=== PATIENT | male | born 1940 | race Caucasian/White ===

== ENCOUNTER → 2016-06-11 | Outpatient (CLI) | payer OTHER ==
[~2016-06-11] MED LIST: ALBUAER2 INH; ASPI81TA28 PO; CLOP1TAB15 PO; EZET10TA47 PO; HYDR5LIQ PO; LEVO1TAB35 PO; LPT/40 PO; METO50TA17 PO; MISCTAB30 PO; NF406 PO; NTRGSL/4 UT; PANT1TAB48 PO; RANI300T2 PO
[2016-06-11 13:43] LABS: ALT/SGPT 46 U/L (12-78); AST/SGOT 22 U/L (15-37); BLOOD UREA NITROGEN 18 mg/dl (7-18); BUN/CREATININE RATIO 17.8 (10-20); CALCIUM 8.5 mg/dl (8.5-10.1); CARBON DIOXIDE 23 mmol/L (21-32); CHLORIDE 108 mmol/L (98-107); GLUCOSE 108 mg/dl (70-99); POTASSIUM 4.2 mmol/L (3.5-5.1); SODIUM 142 mmol/L (136-145)
[2016-06-11 13:47] LABS: ALB/GLOB RATIO 1.2 (0.9-2); ALKALINE PHOSPHATASE 106 U/L (45-117); CHOLESTEROL 134 mg/dl (0-200); CHOLESTEROL/HDL RATIO 2.6; HDL CHOLESTEROL 52 mg/dl; LDL CHOLESTEROL CALCULATED 45 mg/dl; TRIGLYCERIDES 184 mg/dl (0-150); VERY LOW DENSITY LIPOPROT CALC 37 mg/dl
== END | disposition home or self-care (01) ==
LOC: C.LABPVFM 07:54
PROVIDERS: ATTEND Nurse Practitioner
DX: I10 Essential (primary) hypertension (principal); E78.5 Hyperlipidemia, unspecified

== ENCOUNTER → 2016-06-14 | Outpatient (CLI) | payer OTHER ==
--- NOTE | 2016-06-14 09:25 | DIAGNOSTIC IMAGING REPORT ---
CHEST 2 VIEWS ROUTINE CLINICAL HISTORY: RIGHT SIDED CHEST PAIN pain COMPARISON STUDY: 07/26/2015 FINDINGS: The bones soft tissues and hemidiaphragms are normal. The cardiomediastinal silhouette is normal. The lungs are clear. The pulmonary vasculature is normal. IMPRESSION: Negative chest. Electronically signed by: Escobar Mace M.D. 06/14/2016 9:24 AM Dictated Date/Time: 06/14/2016 9:22 AM
== END | disposition home or self-care (01) ==
LOC: C.RADPV 09:09
PROVIDERS: ATTEND Nurse Practitioner
DX: R07.9 Chest pain, unspecified (principal)

== ENCOUNTER → 2016-06-18 | Outpatient (CLI) | payer OTHER ==
--- NOTE | 2016-06-18 09:27 | DIAGNOSTIC IMAGING REPORT ---
ULTRASOUND RIGHT UPPER QUADRANT ABDOMEN CLINICAL HISTORY: Right upper quadrant abdominal pain. COMPARISON STUDY: Abdominal CT dated 01/07/2014. TECHNIQUE: Real-time, grayscale, and color flow sonography of the right upper quadrant of the abdomen was performed. Images are reviewed in the transverse and longitudinal planes. FINDINGS: Liver: The liver is normal in size and echotexture. There is no intrahepatic biliary ductal dilatation. The main portal vein is patent. Gallbladder: A 2 mm gallbladder polyp is incidentally noted. The gallbladder is otherwise normal in appearance. No gallstones are identified. There is no gallbladder wall thickening or pericholecystic fluid. A sonographic Bond's sign is reportedly absent. The common bile duct measures up to 0.4 cm in diameter. Pancreas: Visualized portions of the pancreatic head and body are normal in appearance. Right kidney: Survey images of the right kidney demonstrate normal size and echotexture. There is no hydronephrosis. A 6 mm shadowing calculus is present in the right lower pole. Ascites: None. IMPRESSION: 1. No acute sonographic abnormality is identified in the right upper quadrant. No gallstones are seen. 2. Nonobstructing right renal calculus. Electronically signed by: Hipolito Bansal M.D. 06/18/2016 9:26 AM Dictated Date/Time: 06/18/2016 9:24 AM
== END | disposition home or self-care (01) ==
LOC: C.ULTR 08:52
PROVIDERS: ATTEND Nurse Practitioner
DX: R07.9 Chest pain, unspecified (principal); N20.0 Calculus of kidney

== ENCOUNTER → 2016-12-08 | Outpatient (CLI) | payer OTHER ==
[2016-12-08 13:06] LABS: ESTIMATED AVERAGE GLUCOSE 128 mg/dl; HA1C FLAG Normal (Normal)
[2016-12-08 13:07] LABS: BLOOD UREA NITROGEN 23 mg/dl (7-18); BUN/CREATININE RATIO 25.8 (10-20); CALCIUM 8.5 mg/dl (8.5-10.1); CARBON DIOXIDE 26 mmol/L (21-32); CHLORIDE 110 mmol/L (98-107); CREATININE 0.88 mg/dl (0.60-1.40); GLUCOSE 100 mg/dl (70-99); SODIUM 141 mmol/L (136-145)
== END | disposition home or self-care (01) ==
LOC: C.LABPVFM 08:04
PROVIDERS: ATTEND Nurse Practitioner
DX: I10 Essential (primary) hypertension (principal); R73.01 Impaired fasting glucose

== ENCOUNTER → 2017-02-20 | Outpatient (CLI) | payer OTHER ==
[2017-02-20 13:11] LABS: CHOLESTEROL/HDL RATIO 2.7
== END | disposition home or self-care (01) ==
LOC: C.LABPVFM 08:08
PROVIDERS: ATTEND Nurse Practitioner
DX: E78.5 Hyperlipidemia, unspecified (principal)

== ENCOUNTER → 2017-06-14 | Outpatient (CLI) | payer OTHER ==
[~2017-06-14] MED LIST changes: -NF406 PO; +OSEL75CA23 PO; +PANT1TAB3 PO; -PANT1TAB48 PO
[2017-06-14 13:05] LABS: HEMOGLOBIN A1C 5.8 % (4.5-5.6)
[2017-06-14 13:24] LABS: ALBUMIN 3.7 gm/dl (3.4-5.0); ALT/SGPT 37 U/L (12-78); AST/SGOT 19 U/L (15-37); BLOOD UREA NITROGEN 22 mg/dl (7-18); CARBON DIOXIDE 23 mmol/L (21-32); CREATININE 0.99 mg/dl (0.60-1.40); GLUCOSE 104 mg/dl (70-99); POTASSIUM 3.9 mmol/L (3.5-5.1); SODIUM 138 mmol/L (136-145)
[2017-06-14 13:26] LABS: ALKALINE PHOSPHATASE 106 U/L (45-117); TOTAL PROTEIN 7.1 gm/dl (6.4-8.2)
== END | disposition home or self-care (01) ==
LOC: C.LABPVFM 08:24
PROVIDERS: ATTEND Nurse Practitioner
DX: R73.01 Impaired fasting glucose (principal); I10 Essential (primary) hypertension

== ENCOUNTER → 2017-12-05 | Outpatient (CLI) | payer OTHER ==
[2017-12-05 12:49] LABS: BASO % 0.4 %; BASO ABS # 0.02 K/uL (0-0.2); EOS % 2.2 %; EOS ABS # 0.12 K/uL (0-0.5); HEMATOCRIT 36.2 % (42-52); HEMOGLOBIN 12.2 g/dL (14.0-18.0); IG# 0.01 K/uL (0.00-0.02); LYMPH % 21.4 %; LYMPH ABS # 1.16 K/uL (1.2-3.4); MEAN CELL VOLUME 94.5 fL (80-100); MEAN CORPUSCULAR HEMOGLOBIN 31.9 pg (25-34); MEAN CORPUSCULAR HGB CONC 33.7 g/dl (32-36); MEAN PLATELET VOLUME 8.6 fL (7.4-10.4); MONO ABS # 0.54 K/uL (0.11-0.59); NEUT % 65.8 %; NEUT ABS # 3.57 K/uL (1.4-6.5); PLATELET COUNT 298 K/uL (130-400); RED CELL DISTRIBUTION WIDTH CV 13.6 % (11.5-14.5); RED CELL DISTRIBUTION WIDTH SD 46.8 fL (36.4-46.3); WHITE BLOOD COUNT 5.42 K/uL (4.8-10.8)
[2017-12-05 13:10] LABS: BLOOD UREA NITROGEN 24 mg/dl (7-18); CALCIUM 8.9 mg/dl (8.5-10.1); CARBON DIOXIDE 23 mmol/L (21-32); CREATININE 0.99 mg/dl (0.60-1.40); GLUCOSE 99 mg/dl (70-99); POTASSIUM 4.3 mmol/L (3.5-5.1); SODIUM 136 mmol/L (136-145)
== END | disposition home or self-care (01) ==
LOC: C.LABPVFM 10:44
PROVIDERS: ATTEND Nurse Practitioner
DX: I10 Essential (primary) hypertension (principal); R73.01 Impaired fasting glucose

== ENCOUNTER 2023-12-16 05:07 | Observation (INO) ==
--- NOTE | 2023-11-19 10:45 | PAT Medication Instructions ---
Medication Instructions Date of Service November 19, 2023 Home Medications Medication Instructions Recorded rosuvastatin 40 mg tablet (Crestor) 40 mg PO DAILY #30 tabs 08/14/19 losartan 25 mg tablet 25 mg PO DAILY #90 tabs 11/18/23 omeprazole 20 mg capsule,delayed 20 mg PO BID #180 caps 11/18/23 release Medication List: aspirin 81 mg tablet,delayed release (Adult Low Dose Aspirin) 81 mg PO QAM clopidogrel 75 mg tablet 75 mg PO QAM nitroglycerin 0.4 mg sublingual tablet (Nitrostat) 0.4 mg sublingual Q5M PRN CHEST PAIN rosuvastatin 40 mg tablet (Crestor) 40 mg PO DAILY furosemide 40 mg tablet 40 mg PO BID spironolactone 25 mg tablet 25 mg PO QAM isosorbide mononitrate 30 mg tablet,extended release 24 hr 30 mg PO QAM metoprolol tartrate 75 mg tablet 50 mg PO BID cholecalciferol (vitamin D3) 50 mcg (2,000 unit) tablet (Vitamin D3) 50 mcg PO DAILY losartan 25 mg tablet 25 mg PO DAILY omeprazole 20 mg capsule,delayed release 20 mg PO BID MEDICATION INSTRUCTIONS: Continue as directed nitroglycerin 0.4 mg sublingual tablet (Nitrostat) 0.4 mg sublingual Q5M PRN CHEST PAIN ASK your prescriber and surgeon aspirin 81 mg tablet,delayed release (Adult Low Dose Aspirin) 81 mg PO QAM clopidogrel 75 mg tablet 75 mg PO QAM (for spinal anesthesia: will need to hold Plavix/clopidogrel for at least 7 days prior to surgery) DO NOT take the morning of surgery furosemide 40 mg tablet 40 mg PO BID spironolactone 25 mg tablet 25 mg PO QAM cholecalciferol (vitamin D3) 50 mcg (2,000 unit) tablet (Vitamin D3) 50 mcg PO DAILY losartan 25 mg tablet 25 mg PO DAILY Take morning of surgery With a small sip of water, OTHERWISE NOTHING TO EAT OR DRINK AFTER MIDNIGHT: metoprolol tartrate 75 mg tablet 50 mg PO BID omeprazole 20 mg capsule,delayed release 20 mg PO BID isosorbide mononitrate 30 mg tablet,extended release 24 hr 30 mg PO QAM rosuvastatin 40 mg tablet (Crestor) 40 mg PO DAILY Take evening before surgery metoprolol tartrate 75 mg tablet 50 mg PO BID omeprazole 20 mg capsule,delayed release 20 mg PO BID furosemide 40 mg tablet 40 mg PO BID Other Notes If you have any questions please call us at [phone] or [phone] or [phone] or [phone]
--- NOTE | 2023-11-27 08:47 | Anesthesiology Consultation ---
Date of Service November 27, 2023 Assessment & Plan (1) Encounter for pre-operative examination: - Check BSG AM DOS - Infectious disease screening: Per assessment on 11/27/23: No known recent infectious disease contacts or current infectious disease symptoms. - Outpatient joint assessment: Pt currently scheduled for inpatient pathway. If surgeon requests review for outpatient joint pathway, patient is not recommended candidate for outpatient joint program from anesthesia standpoint based on available information. - Plavix instructions: Patient made aware that for neuraxial anesthesia, Plavix needs to be held 7 days prior to surgery- okay per cardiology. - Cardiology visit (11/25/23): "..underwent Lexiscan nuclear stress testing revealing lateral ischemia. On July 18, 2023 he underwent cardiac catheterization by Dr. Tiwari at [facility] revealing progression of multivessel coronary artery disease. Findings included moderate disease of the left main extending into the ostium of the LAD, critical complex ostial circumflex and ramus branch disease, 99% stenosis of a small ramus, and severe stenosis of the RPDA. His left system was not felt to be great for PCI. LV function preserved. Following consideration of options, patient elected to proceed with coronary artery bypass grafting, undergoing redo sternotomy, CABG x 3 on August 21, 2023.. Postoperative course complicated by anemia (discharge Hgb 8.1 g/dL), CO2 retention, urinary retention and hematuria, vagal episodes. No postoperative atrial fibrillation observed. Imdur 60 mg/day discontinued on discharge from [facility] [place]. Tamsulosin 0.4 mg daily x 30 day and oxycodone prescribed on discharge... Patient returns today feeling OK. Notes being evaluated by CT Surgery on 09/26/2023, advised at that time to discontinue furosemide (40 mg BID). Over the last few weeks he has notice some bilateral lower extremity edema. He states that he has been feeling great. Notes working without cardiopulmonary limitation (limited by hip pain with possible surgical intervention in December). No activity related chest pain or unusual shortness of breath. No palpitations. No orthopnea or PND. No abrupt weight change. No lightheadedness, dizziness, near syncope, or syncope. No fevers or chills. No epistaxis, hemoptysis, melena, hematochezia, or hematuria.. Verify current medications, resuming furosemide at 40 mg ONCE a day for now.. No overt cardiac contraindications to elective hip replacement once blood pressure and fluid status are acceptable. Metoprolol and aspirin should be continued without interruption. OK to hold clopidogrel up to 7 days prior to surgery. Recommend holding losartan, furosemide, and spironolactone the morning of surgery then resuming postoperatively as hemodynamics permit." - Cardiology mentioned rechecking BMP week of 12/08 (around time of DOS) due to addition/resumption of furosemide. Patient states he is planning to have done prior but if not, will update BMP DOS. Awaiting updated BMP ([place] [facility], ~12/08). Patient otherwise acceptable risk for surgery. Chart Review Chart Review: Patient seen in Pre Admission Testing Teaching & Discussion Pre-Anesthesia Teaching/Discussion Notes: Instructed NPO after midnight before surgery,except medications with 15 cc of water. Medication instructions provided according to the PAT guidelines. History Surgery Operation Date: 12/16/23 09:00 Proposed Procedures p Right Anterior Total Hip Arthroplasty - David Grossman, Height/Weight Height: 5 ft 8 in Weight: 91.7 kg Allergies Allergy/AdvReac Type Severity Reaction Status Date / Time codeine Allergy Unknown Rash Verified 11/15/23 11:06 erythromycin base Allergy Unknown Rash Verified 11/15/23 11:06 Penicillins Allergy Unknown Hives Verified 11/15/23 11:06 Tetracyclines Allergy Unknown Rash Verified 11/15/23 11:06 Medications Home Medications Medication Instructions Recorded Confirmed Last Taken aspirin 81 mg tablet,delayed 81 mg PO QAM 11/12/18 11/15/23 Unknown release (Adult Low Dose Aspirin) clopidogrel 75 mg tablet 75 mg PO QAM 11/12/18 11/15/23 Unknown nitroglycerin 0.4 mg sublingual 0.4 mg sublingual Q5M PRN CHEST 11/12/18 11/15/23 Unknown tablet (Nitrostat) PAIN rosuvastatin 40 mg tablet (Crestor) 40 mg PO DAILY #30 tabs 08/14/19 11/15/23 Unknown furosemide 40 mg tablet 40 mg PO BID 08/21/21 11/15/23 Unknown spironolactone 25 mg tablet 25 mg PO QAM 08/21/21 11/15/23 Unknown isosorbide mononitrate 30 mg 30 mg PO QAM 08/21/22 11/15/23 Unknown tablet,extended release 24 hr metoprolol tartrate 75 mg tablet 50 mg PO BID 05/23/23 11/15/23 Unknown cholecalciferol (vitamin D3) 50 50 mcg PO DAILY 11/15/23 11/15/23 Unknown mcg (2,000 unit) tablet (Vitamin D3) losartan 25 mg tablet 25 mg PO DAILY #90 tabs 11/18/23 Unknown omeprazole 20 mg capsule,delayed 20 mg PO BID #180 caps 11/18/23 Unknown release Past Medical History Medical History CAD (coronary artery disease) s/p CABG x3 (08/2023) Carotid artery stenosis s/p Left Carotid Thromboendarterectomy (2010) Carotid duplex 07/2023: FUNMI 50-69% stenosis (stable), LICA < 50% stenosis Chronic anemia Chronic lumbosacral pain Diverticulosis of colon GERD (gastroesophageal reflux disease) Gout History of aortic stenosis s/p AVR (2017), Echo 09/2022 Follows with [facility] cardio History of prostate cancer s/p treatment with [facility] urology 5+ years ago HTN (hypertension) Hyperlipidemia Mitral regurgitation Osteoarthritis Pre-diabetes Seasonal allergies Exercise / Class Metabolic Activity III < 4 Walking/Shop/Light housework Past Family History Family History Other Colorectal cancer Prostate cancer Denies family history of Ovarian cancer Myocardial infarction Breast cancer Past Surgical History Surgical History History of carpal tunnel release of both wrists History of coronary artery bypass graft x 3 (08/2023) Follows [facility] cardio History of surgical procedure Carotid Thromboendarterectomy, Left Hx of aortic valve replacement 2018 Hx of bilateral cataract extraction Hx of cardiac catheterization Multiple Hx of colonoscopy Hx of knee surgery Hx of shoulder surgery rotator cuff repair; R/L Past Anesthesia History No Hx of Anesthesia Complications and No Family Hx of Anesthesia Complications History of PONV No Hx of PONV and No Hx of Motion Sickness Social History Smoking Status: Never smoker Do You Dip or Chew Tobacco: No Hx Alcohol Use: Yes Alcohol type: hard liquor alcohol intake frequency: holidays/special occasions only Hx Substance Use: No substance use type: does not use Review of Systems Patient denies chest pain, shortness of breath, dyspnea on exertion, fever, chills, cough, wheezing, palpitations. Physical Exam Vital Signs BP 120/71 P 61 TEMP 98.2 SP02 95%RA RESP 18 Physical Full cervical extension range of motion. Full TMJ range of motion. TMD 3 finger breaths Mallampati Score 2 Dentition: upper/lower full dentures Lungs: clear throughout to auscultation Cardiac: regular rate and rhythm, no murmurs noted Spine: normal Carotid arteries: negative bruit Extremities: no LE edema Lab Results Anesthesia Preop Results Results Anesthesia Widget: PT 10.6 Seconds (9.0-12.0) 11/27/23 PTT 25 Seconds (21-31) 11/27/23 INR 1.0 (0.9-1.1) 11/27/23 Blood Type O Positive 11/27/23 Antibody Screen NEGATIVE 11/27/23 Testing Laboratory Results 11/25/23 WBC 4.14 H/H 12.1/35.7 PLATELETS 165 SODIUM 137 POTASSIUM 4.0 CHLORIDE 100 CO2 24 BUN 16 CREATININE 1.0 GLUCOSE 110 MAGNESIUM 2.1 08/01/23 HGBA1C 6.3% Electrocardiogram Date: 09/23/23 SR with frequent PVCs at 80bpm. NS TWA. Prolonged QT interval or tu fusion, consider myocardial disease, electrolyte imbalance or drug effects. Chest X-Ray Date: 11/27/23 FINDINGS: PA and lateral chest radiographs are compared to study dated 05/23/2023. Correlation is made with chest CT dated 10/27/2019. The patient is status post midline sternotomy. The heart is enlarged noting atherosclerotic calcification of the thoracic aorta. The pulmonary vasculature is noncongested. There is mild bibasilar scarring/atelectasis. The lungs and pleural spaces are otherwise clear. There is no pneumothorax. The skeletal structures are osteopenic. The bony thorax appears intact. Degenerative change is noted in the thoracic spine. A 7 mm calculus is seen in the upper pole of the right kidney. Additional smaller calculi are seen on the left. IMPRESSION: Cardiomegaly with no active disease in the chest. Bilateral nephrolithiasis. Echocardiogram Date: 09/19/22 LVEF 65-69%.Moderately increased concentric LV wall thickness. Grade 1 diastolic dysfunction. Bioprosthetic aortic valve present. Aortic valve prosthesis systolic gradients are normal for this type prosthesis. Significant AV prosthesis regurgitation is absent. Mild MR. No evidence of pulmonary hypertension.LV wall motion is normal. Stress Test Date: 06/14/23 Abnormal Lexiscan nuclear stress test demonstrating small basal lateral infarct with moderate wes-infarct ischemia. Ischemia compasses 10% of the total m yocardium per quantitative analysis.Gated SPECT images reveal normal myocardial thickening and wall motion. LVEF 71%. Cardiac Catheterization Date: 07/18/23 Severe multivessel CAD -There is a 50% LMCA stenosis in the distal segment - There is a 95% stenosis in the ostial LCX -There is a 99% stenosis in the proximal Ramus -There is an 85% stenosis in proximal D1 -There is a 90% stenosis in proximal rPDA Otherwise prior stents are patent with mild luminal irregularities diffusely. LVEDP = 19 mmHg S/p R radial artery access *Subsequent CABGx3 performed 08/2023* Other Testing Carotid duplex Date: 07/31/23 The right vertebral artery demonstrates antegrade flow. The left vertebral artery demonstrates antegrade flow. Right carotid artery duplex examination indicates evidence of 50-69% stenosis of the internal carotid artery. Left carotid artery duplex examination indicates evidence of less than 50% stenosis of the internal carotid artery.
--- OUTSIDE RECORDS SUMMARY | 2023-12-16 05:15 | External Medical Summary | Summary of Care ---
Author Name Unknown Organization [facility] Address [address] [facility] [address] Phone [phone] Care Team Providers Care Truck Bracer Name Role Phone Barbara Rod Primary Care Provide r Encounter Details Date Type Department Care Team (Late st Contact Info) Description 12/11/2023 Orders Only Cardiology, [facility] [address] [place] [address] Escobar Dacosta PA-C [address] [place] [id number] Allergies Active Allergy Reactions Criticality Noted Date Comments Erythromycin Base 05/23/2023 Other Reaction(s): Rash Morphine And Codeine 06/02/2008 rash Penicillins Hives 06/02/2008 Tetracycline Base Hives 06/02/2008 Tetracycline Hcl 05/31/2010 documented as of this encounter (statuses as of 12/11/2023) Medications Medication Sig Dispensed Refills Start Date End Date Status nitroglycerin (NITROSTAT) 0.4 MG SUBLIndications:Digital Specialist brionna coronary artery disease,S/P angioplasty with stent 1 Tab Sublingual Every 5 minutes as needed for chest pain 25 Tab 5 09/25/2016 Active Aspirin 81 MG Tablet Take 1 Tablet by mouth in the morning. Active D3 2000 50 MCG (1999) Oral Capsule (Cholecalciferol) Take 1 Capsule by mouth in the morning. Active Rosuvastatin Calcium 40 MG Oral Tablet (Crestor)Indications :Dyslipidemia, goal LDL below 70 TAKE ONE TABLET BY MOUTH EVERY DAY 90 Tablet 3 11/19/2022 4 Active Clopidogrel Bisulfate 75 MG Oral Tablet (pLAVix)Indications: Chronic coronary artery disease,S/P angioplasty with stent TAKE ONE TABLET BY MOUTH EVERYDAY 90 Tablet 3 02/25/2023 4 Active Spironolactone 25 MG Oral Tablet (Aldactone)Indicatio ns:Heart failure, diastolic, with acute decompensation (HCC),Diastolic CHF, acute on chronic (HCC) TAKE ONE TABLET BY MOUTH EVERY DAY 90 Tablet 3 03/21/2023 4 Active Metoprolol Tartrate 50 MG Oral Tablet (Lopressor)Indicatio ns:Chronic coronary artery disease TAKE ONE TABLET BY MOUTH TWICE A DAY 200 Tablet 3 07/30/2023 5 Active Losartan Potassium 25 MG Oral Tablet (Cozaar) take one tablet by mouth daily - stop lisinopril 90 Tablet 3 11/18/2023 Active Omeprazole 20 MG Oral Capsule Delayed Release (PriLOSEC) take one capsule by mouth twice a day 180 Capsule 3 11/18/2023 Active Furosemide 40 MG Oral Tablet (Lasix)Indications:H eart failure, diastolic, with acute decompensation (HCC) Take 1 Tablet by mouth in the morning and 1 Tablet before bedtime. 11/27/2023 Active documented as of this encounter (statuses as of 12/11/2023) Active Problems Problem Noted Date Diagnosed Date S/P CABG x 3 08/26/2023 Penile swelling 08/25/2023 Urinary retention 08/25/2023 Gastroesophageal reflux disease 08/24/2023 Hypertension 08/24/2023 Chronic diastolic (congestive) heart failure 07/2021 S/P AVR (aortic valve replacement) 05/15/2021 Dyslipidemia, goal LDL below 70 05/15/2021 Nonrheumatic aortic valve stenosis 04/23/2016 Atheros[place] ronary artery [place] heart without angina pectoris 10/03/2011 S/P PTCA (percutaneous transluminal coronary ang ioplasty) 10/03/2011 Carotid stenosis, non-symptomatic 04/26/2011 S/P angioplasty with stent 06/02/2010 Overview: BLADIMIR to mLAD 06/02/10-Dr. Amos History of prostate cancer 07/29/2008 documented as of this encounter (statuses as of 12/11/2023) Resolved Problems Problem Noted Date Diagnosed Date Resolved Date Atherosclerosis [place] co ronary artery [place] heart 08/01/2023 11/22/2023 Overview: duplicate Postoperative anemia due to acute blood loss 8 04/16/2023 [employer] [facility] Other*[id number] 06/02/2010 06/19/2016 Overview: Study Titile: Genomic Markers for Patients with Cardiovascular Disease Project #[id number] PI: Santa Amos MD Please call [phone] with study related questions Chronic coronary artery disease 06/02/2010 11/22/2023 Overview: duplicate VERDICT Clinical Trial [id number] 1 05/20/2013 Overview: Dr Lui Melgar PI, enrolled 06/02/10 VERDICT Clinical Trial [id number] 1 04/21/2014 Overview: Renamed per the Centers for Medicare and Medicaid billing requirements to include Clinical Trial.gov number. Dr Lui Melgar PI, enrolled 06/02/10 documented as of this encounter (statuses as of 12/11/2023) Immunizations Name Administration Dates Next Due Season Influenza, Quad, PF, Adjuvanted, 65+ Yrs, IM (FLUAD) 01/26/2020 Seasonal Influenza, Quadrivalent Hd (Fluzone Hd) 01/30/2023,01/17/2022 documented as of this encounter Social History Tobacco Use Types Packs/Day Years Used Date Smoking Tobacco: Former Cigarettes 1 15 0 11/01/1972 - 11/02/1987 Smokeless Tobacco: Never Alcohol Use Standard Drinks/Week Comments Yes 0.8 (1 standard drink = 0.6 oz p ure alcohol) Once or twice monthly PHQ-2 Answer Date Recorded PHQ Adult Total Score 0 08/27/2023 Hunger Vital Sign Answer Date Recorded Within the past 12 months, y ou worried that your food would run out before you got the money to buy more. Never true 08/27/19 24 Within the past 12 months, t he food you bought just didn't last and you didn't have money to get more. Never true 08/27/2023 Childcare Answer Date Recorded Do you feel overwhelmed with taking care of a child, family member or friend? No 08/27/2023 Does your family need help f inding childcare? (Household - for ages 0-17 years) Not on file 08/27/2023 Clothing Answer Date Recorded Have you been unable to get clothing when it was really needed? No 08/27/2023 Is your family able to get c lothes or diapers when needed? (Household - for ages 0-17 years) Not on file 08/27/2023 Personal Safety Answer Date Recorded Do you feel unsafe or have concerns for your saf ety? No 08/27/2023 Do you have concerns for you r family's safety? (Household - for ages 0-17 years) Not on file 08/27/2023 Utilities Answer Date Recorded Do you have trouble paying y our heating, water, or electric bill? No 08/27/2023 Is your family able to pay t he heat, water, or electric bill? (Household - for ages 0-17 years) Not on file 08/27/2023 Does your family have access to good internet? (Household - for ages 0-17 years) Not on file 08/27/2023 Employment Status Answer Date Recorded Are you unemployed or without regular income? No 08/27/2023 Does the household have a re gular source of income? (Household - for ages 0-17 years) Not on file 08/27/2023 Social Connections Answer Date Recorded How often do you feel lonely or isolated from th ose around you? Never 08/27/2023 Financial Resource Strain Answer Date R ecorded Do you have any trouble payi ng for your medications, or do you think you might in the future? No 08/27/2023 Does your family have troubl e paying for medicine? (Household - for ages 0-17 years) Not on file 08/27/2023 Transportation Needs Answer Date Record ed READ ONLY Do you have troubl e getting a ride to medical visits or work? Never True 08/27/2023 Does your family have a hard time getting a ride to doctors visits? (Household - for ages 0-17 years) Not on file 08/27/2023 Has lack of transportation k ept you from medical appointments, meetings, work, or from getting things needed for daily living? Check all that apply. (Adult - for ages 18 years and over) Not on file 08/27/2023 Do you (or your family) have trouble finding or paying for a ride (transportation)? (Household - for ages 0-17 years) Not on file 08/27/2023 Housing Stability Answer Date Recorded Do you currently live in a s helter or have no steady place to sleep at night? No 08/27/2023 READ ONLY Do you think you a re at risk of becoming homeless? No 08/27/2023 Does your family worry about paying for your home or becoming homeless? (Household - for ages 0-17 years) Not on file 0 08/27/2023 Are you homeless or worried that you might be in the future? (Adult - for ages 18 years and over) Not on file Are you (or your family) niki eless or worried that you might be in the future? (Household - for ages 0-17 years) Not on file Food Insecurity Answer Date Recorded Do you need food for this week? No 08/27/2023 Are you able to get enough f ood for your family? (Household - for ages 0-17 years) Not on file 08/27/2023 Does your family need food t his week? (Household - for ages 0-17 years) Not on file 08/27/2023 Do you always have enough fo od for your family? (Household - for ages 0-17 years) Not on file 08/27/2023 Sex and Gender Information Value Date Recorded Sex Assigned at Not on file Gender Identity Not on file Sexual Orientation Not on file Job Start Date Occupation Industry Not on file Not on file Not on file documented as of this encounter Plan of Treatment Upcoming Encounters Date Type Department Care Team (Late st Contact Info) Description 02/25/2024 9:00 AM EDT Office Visit Cardiology, [facility] [address] [place] [address] Escobar Dacosta PA-C [address] [place] [address] 04/01/2024 10:30 AM EST Appointment Vascular Lab [facility] [address] [place] [address] 04/01/2024 11:15 AM EST Office Visit Vascular Surg [facility] [address] [place] [address] Darrell Lux MD [address] [place] [address] Health Maintenance Due Date Last Done Comments Albumin/Creatinine Ratio 1958 DTaP,Tdap,and Td Vaccines (1 - Tdap) 1959 COVID-19 Vaccine ( - 2022- season) 2023 02/19/2022, 04/18/2021, 08/30/2020, Additional history exists Influenza Vaccine (FLU shot) (#1) 2024 01/30/2023, 01/11/2023, 01/20/2022, Additional history exists Depression Screening 08/26/2024 08/27/2023 GFR 11/24/2024 12/10/2023, 11/10, 10/14/2023, Additional history exists Pneumococcal Vaccine: 65+ Years Completed 06/18/2017, 12/08/2015 Zoster Vaccines Completed 07/06/2020, 04/12, 03/02/2013 HPV (Gardasil) Vaccine Aged Out No lo nger eligible based on patient's age to complete this topic Hepatitis B Vaccine Aged Out No longe r eligible based on patient's age to complete this topic MENINGOCOCCAL (MENACTRA/MENVEO) Aged Out No longer eligible based on patient's age to complete this topic documented as of this encounter Medical Devices Implanted Type Area Ict Customer Support Officer Device Identifier Shelf Expiration Date Model / Serial / Lot Patch Trice .8x8 [id number] - [id number] Implanted:Qty: 1 on 04/26/2011 at OR [facility] Tissue - Human Left: Carotid [employer] 12/16/2015 [id number] / / [id number] Description:tt Atriclip 40mm [id number] - [id number] Implanted:Qty: 1 on 11/18/2017 by Mamadou Villar MD at OR [facility] N/A: Aorta ATRICURE 08/11/2020 [id number] / / [id number] Valve Heart Aortic Epic 23mm - [id number] - [id number] Implanted:Qty: 1 on 11/18/2017 by Mamadou Villar MD at OR [facility] N/A: Heart ST KARYN : CARDIOVASCULAR 08/19/2020 [id number] -00 / [id number] / Lens Li61ao 13.00mm 20.50 - [id number] - [id number] Implanted:Qty: 1 on 10/16/2022 by Jeremias Ho MD at OR [facility] Right: Eye BAUSCH [employer] LOMB 06/12/2027 [id number] 50 / [id number] / [id number] Lens Li61ao 13.00mm 21.00 - [id number] - [id number] Implanted:Qty: 1 on 10/30/2022 by Jeremias Ho MD at OR [facility] Left: Eye BAUSCH & LOMB 06/12/2027 [id number] 00 / [id number] / [id number] Suture Steel 6 B&S19 M654g - [id number] Implanted:Qty: 8 on 08/21/2023 by Christoph Schultz MD at OR [facility] N/A: Sternum JNJ : [employer] 03/12/2028 M654G / / [id number] Marker Coronary - [id number] Implanted:Qty: 2 on 08/21/2023 by Christoph Schultz MD at OR [facility] N/A: Aorta [employer] 07/10/2026 [facility] / / [id number] documented as of this encounter Procedures Procedure Name Priority Date/Time Associated Diagnosis Comments CHEMISTRY-OUTSIDE Routine 12/10/2023 documented in this encounter Results * (ABNORMAL) CHEMISTRY-OUTSIDE (12/10/2023) Not all results display below - see scan for full detail OUTSIDE LAB (SEE SCANNED REPORT) Comment:SEE SCAN - BMP CREATININE-OUTSID E LAB 0.92 0.6 - 1.4 MG/DL OUTSIDE LAB (SEE SCANNED REPORT) EGFR-OUTSIDE LAB 76.1 ML/MIN OUT SIDE LAB (SEE SCANNED REPORT) POTASSIUM-OUTSIDE LAB 3.8 3.5 - 5.1 MMOL/L OUTSIDE LAB (SEE SCANNED REPORT) GLUCOSE-OUTSIDE LAB 112(A) 70 - 99 MG/DL OUTSIDE LAB (SEE SCANNED REPORT) HOURS FASTING OUTSID E LAB (SEE SCANNED REPORT) TRIGLYCERIDES-OUT SIDE LAB OUTSIDE LAB (SEE SCANNED REPORT) CHOLESTEROL-OUTSI DE LAB OUTSIDE LAB (SEE SCANNED REPORT) HDL-OUTSIDE LAB OUTS TYRONE LAB (SEE SCANNED REPORT) CHOL/HDL RATIO-OUTSIDE LAB OUTSIDE LA B (SEE SCANNED REPORT) LDL (CALCULATED)-OUTS TYRONE LAB OUTSIDE LAB (SEE SCANNED REPORT) LDL (DIRECT MEASURE)-OUTSIDE LAB OUTSIDE LAB (SEE SCANNED REPORT) HEMOGLOBIN, I5B-CBYRLQL LAB OUTSIDE LAB (SEE SCANNED REPORT) PHOSPHORUS-OUTSID E LAB OUTSIDE LAB (SEE SCANNED REPORT) PTH-OUTSIDE LAB OUTS TYRONE LAB (SEE SCANNED REPORT) MICROALBUMIN RATIO-OUTSIDE LAB OUTSIDE LA B (SEE SCANNED REPORT) PROTEIN, UA-OUTSIDE LAB OUTSIDE LAB (SEE SCANNED REPORT) HGB OUTSIDE LA B (SEE SCANNED REPORT) 12/10/2023 Escobar Dacosta PA-C LABORATORY OUTSIDE LAB (SEE SCANNED REPORT) documented in this encounter Advance Directives * Full Code (Latest Code Status on File) Date Activated Date Inactivated Comments 08/21/2023 2:04 PM 08/26/2023 4:05 PM This order r eflects the patients wishes and were consensually agreed upon. Question Answer Comments Discussion of Advance Directives occurred with: Patient * No Code Date Activated Date Inactivated Comments 10/16/2022 9:33 AM 10/16/2022 9:34 AM This order ref lects the patients wishes and were consensually agreed upon. Question Answer Comments Discussion of Advance Directives occurred with: Patient Does the patient have a Living Will? No Does the patient have Health Care Power of Attor audie? No * Full Code Date Activated Date Inactivated Comments 11/18/2017 1:36 PM 11/23/2017 3:31 PM This order re flects the patients wishes and were consensually agreed upon. * Full Code Date Activated Date Inactivated Comments 10/03/2011 1:26 PM 10/04/2011 4:56 AM This order r eflects the patients wishes and were consensually agreed upon. Question Answer Comments Discussion of Advance Directives occurred with: Not Discussed Does the patient have a Living Will? No Does the patient have Health Care Power of Attor audie? No * Full Code Date Activated Date Inactivated Comments 04/26/2011 10:54 AM 04/27/2011 3:38 PM This orde r reflects the patients wishes and were consensually agreed upon. Question Answer Comments Discussion of Advance Directives occurred with: Patient Does the patient have a Living Will? No Does the patient have Health Care Power of Attor audie? No Care Teams Truck Bracer Relationship Specialty Start Date End Date Barbara Rod CRNP [address] [place] [phone] PCP - General Nurse Practitioner 12/14/15 documented as of this encounter
--- OUTSIDE RECORDS SUMMARY | 2023-12-16 05:15 | External Medical Summary | Summary of Care ---
Author Name Unknown Organization [facility] Address [address] [place] [address] Phone [phone] Care Team Providers Care Construction Electrician Name Role Phone Barbara Rod Primary Care Provide r Reason for Visit * Reason Onset Date Comments Test Results 12/11/2023 Encounter Details Date Type Department Care Team (Late st Contact Info) Description 12/11/2023 Telephone Cardiology, [facility] [address] [place] [address] Escobar Dacosta PA-C [address] [place] [address] Test Results Allergies Active Allergy Reactions Criticality Noted Date Comments Erythromycin Base 05/23/2023 Other Reaction(s): Rash Morphine And Codeine 06/02/2008 rash Penicillins Hives 06/02/2008 Tetracycline Base Hives 06/02/2008 Tetracycline Hcl 05/31/2010 documented as of this encounter (statuses as of 12/11/2023) Medications Medication Sig Dispensed Refills Start Date End Date Status nitroglycerin (NITROSTAT) 0.4 MG SUBLIndications:Senior Military Analyst brionna coronary artery disease,S/P angioplasty with stent 1 Tab Sublingual Every 5 minutes as needed for chest pain 25 Tab 5 09/25/2016 Active Aspirin 81 MG Tablet Take 1 Tablet by mouth in the morning. Active D3 2000 50 MCG (2000 UT) Oral Capsule (Cholecalciferol) Take 1 Capsule by [...] Nonrheumatic aortic valve stenosis 04/23/2016 Atherosclerosis of [place] co ronary artery of [place] heart without angina pectoris 10/03/2011 S/P PTCA (percutaneous transluminal coronary ang ioplasty) 10/03/2011 Carotid stenosis, non-symptomatic 04/26/2011 S/P angioplasty with stent 06/02/2010 Overview: BLADIMIR to mLAD 06/02/10-Dr. Amos History of prostate cancer 07/29/2008 documented as of this encounter (statuses as of 12/11/2023) Resolved Problems Problem Noted Date Diagnosed Date Resolved Date Atherosclerosis of [place] co ronary artery of [place] heart 08/01/2023 11/22/2023 Overview: duplicate Postoperative anemia due to acute blood loss 8 04/16/2023 [employer] [facility] Other*[id number] 06/02/2010 06/19/2016 Overview: Study Titile: Genomic Markers for Patients with Cardiovascular Disease Project #[id number] PI: Santa Amos MD Please call [phone] with study related questions Chronic coronary artery disease 06/02/2010 11/22/2023 Overview: duplicate VERDICT Clinical Trial [id number] 1 05/20/2013 Overview: Dr Lui Melgar PI, enrolled 06/02/10 VERDICT Clinical Trial [id number] 1 04/21/2014 Overview: Renamed per the Centers [...] 08/27/2023 Does the household have a re lar source of income? (Household - for ages [...] on file documented as of this encounter Miscellaneous Notes * Telephone Encounter - Danielle Ramirez CMA - 12/11/2023 3:44 PM EDT Letter mailed. * Telephone Encounter - Danielle Ramirez CMA - 12/11/2023 3:43 PM EDT ----- Message from Escobar Dacosta sent at 12/11/2023 2:51 PM EDT ----- ok documented in this encounter Plan of Treatment Upcoming Encounters Date Type Department Care Team (Late st Contact Info) Description 02/25/2024 9:00 AM EDT Office Visit Cardiology, [facility] [address] [place] [address] Escobar Dacosta PA-C [address] [place] [address] 04/01/2024 10:30 AM EST Appointment Vascular Lab [facility] [address] [place] [address] 04/01/2024 11:15 AM EST Office Visit Vascular Surg [facility] [address] [place] [address] Darrell Lux MD [address] [place] [address] Health Maintenance Due Date Last Done Comments Albumin/Creatinine Ratio 1958 DTaP,Tdap,and Td Vaccines (1 - Tdap) 1958 COVID-19 Vaccine ( season) 2023 02/19/2022, 04/18/2021, 08/30/2020, Additional history exists Influenza Vaccine (FLU shot) (#1) 2024 01/30/2023, 01/11/2023, 01/20/2022, Additional history exists Depression Screening 08/26/2024 08/27/2023 GFR 12/09/2024 12/10/2023, 11/10, 10/14/2023, Additional history exists Pneumococcal [...] this encounter Medical Devices Implanted Type Area Fibrous Plasterer Device Identifier Shelf Expiration Date Model / Serial / Lot Patch Александрgubrigida .8x8 [id number] - [id number] Implanted:Qty: 1 on 04/26/2011 at [place] [facility] Tissue - Human Left: Carotid [employer] 12/16/2015 VG-[id number] / / [id number] Description:tt Atriclip 40mm [id number] - [id number] Implanted:Qty: 1 on 11/18/2017 by Mamadou Villar MD at [place] [facility] N/A: Aorta ATRICURE 08/11/2020 [id number] / / [id number] Valve Heart Aortic Epic 23mm - [id number] - [id number] Implanted:Qty: 1 on 11/18/2017 by Mamadou Villar MD at [place] [facility] N/A: Heart ST KARYN : CARDIOVASCULAR 08/19/2020 [id number] -00 / [id number] / Lens Li61ao 13.00mm 20.50 - [id number] - [id number] Implanted:Qty: 1 on 10/16/2022 by Jeremias Ho MD at OR [facility] Right: Eye BAUSCH & LOMB 06/12/2027 [id number] 50 / [id number] / [id number] Lens Li61ao 13.00mm 21.00 - [id number] - [id number] Implanted:Qty: 1 on 10/30/2022 by Jeremias Ho MD at OR [facility] Left: Eye BAUSCH & LOMB 06/12/2027 [id number] 00 / [id number] / [id number] Suture Steel 6 B&S19 M654g - [id number] Implanted:Qty: 8 on 08/21/2023 by Christoph Schultz MD at [place] [facility] N/A: Sternum JNJ : [employer] 03/12/2028 M654G / / [id number] Marker Coronary - [id number] Implanted:Qty: 2 on 08/21/2023 by Christoph Schultz MD at [place] [facility] N/A: Aorta [employer] 07/10/2026 [facility] / / [id number] documented as of this encounter Advance Directives * Full Code [...] Power of Attor audie? No Care Teams Construction Electrician Relationship Specialty Start Date End Date Barbara Rod CRNP [address] [place] [address] [address] [place] [address] PCP - General Nurse Practitioner 12/14/15 documented as of this encounter
[2023-12-16] MEDS: LR 15ML/HR IV SCH (05:56)
[2023-12-16] MEDS: LR 60ML/HR IV SCH (05:56)
[2023-12-16] MEDS: FAMOTIDINE 20 MG TAB PO SCH (05:57)
[2023-12-16] MEDS: ACETAMINOPHEN 500 MG TAB PO SCH ×2 (05:57→13:57)
[2023-12-16] MEDS: dexAMETHasone**PF** 10 MG/ML VIAL IV SCH (05:58)
[2023-12-16] MEDS: GABAPENTIN 300 MG CAP PO SCH (05:58)
[2023-12-16] MEDS ORDERED: ROPIVACAINE 0.5% 5 MG/ML 30 ML VIAL ONE (06:21)
--- NOTE | 2023-12-16 06:36 | History & Physical Bridge Note ---
Date of Service December 16, 2023 History & Physical Bridge Note I have examined the patient, reviewed the History & Physical and in the interval since the performance of the History & Physical I have noted the following changes of clinical significance: no changes noted
[2023-12-16] MEDS ORDERED: fentaNYL citrate PF 100 MCG/2 ML VIAL ONE (06:37)
[2023-12-16] MEDS ORDERED: MIDAZOLAM HCL 1 MG/ML 2ML VIAL ONE (06:37)
[2023-12-16] MEDS: TRANEXAMIC ACID 1,000 MG **IV Pre-op IV SCH (06:40)
[2023-12-16] MEDS ORDERED: HYDROmorphone INJ 1 MG/ML SYRINGE IV PRN (06:40)
[2023-12-16] MEDS ORDERED: ONDANSETRON INJ 2 MG/ML 2 ML VIAL IV PRN ×2 (06:40→09:34)
[2023-12-16] MEDS ORDERED: KETOROLAC 30 MG/ML VIAL IV PRN (06:40)
[2023-12-16] MEDS ORDERED: ATROPINE SULFATE 0.1 MG/ML 10ML SYR IV PRN (06:40)
[2023-12-16] MEDS ORDERED: ePHEDrine sulfate 50 MG/ML AMP IV PRN (06:40)
[2023-12-16] MEDS: ceFAZolin 2000MG 2,000 MG/15 ML SYR IV SCH ×2 (06:55→13:57)
[2023-12-16] MEDS ORDERED: PROPOFOL IV EMULSION 10 MG/ML 20 ML VIAL IV ONE (07:08)
[2023-12-16] MEDS ORDERED: ePHEDrine sulfate 50 MG/ML AMP ONE (07:13)
[2023-12-16] MEDS: ORTHO JOINT ANESTHETIC ONE (07:29)
[2023-12-16] MEDS: ROPIV 0.5% 246mg, Ketorolac 30mg, EPINEPHrine 0.5mg in NSS INFIL SCH (07:29)
--- NOTE | 2023-12-16 08:02 | Operative Report ---
PG Post Operative Report Pre & Post Diagnosis Operation Date: 12/16/23 07:00 Pre-Op Diagnosis: Right Hip Degenerative Joint Disease Post-Op Diagnosis: Right Hip Degenerative Joint Disease I identified the patient and participated in the time-out.: Yes Procedure Operation Date: 12/16/23 07:00 Actual Procedures p Right Anterior Total Hip Arthroplasty, Uncemented(Right) - David Grossman DO Surgeon David Grossman DO Filer Finish David Almonte PA-C Estimated Blood Loss 200 Findings Consistent with Post-Op Diagnosis Specimens Right femoral head Description of Procedure Implants used I used a ZimmerBiomet total hip arthroplasty system with a size 5 standard offset Avenir Complete stem, a 52 mm G7 cup with a 25mm screw, an E1 polyethylene liner, a 36 mm ceramic head with a 0 neck. Ayden arrived at the hospital for the above procedure. He was seen in the preoperative holding area and the operative extremity was identified and signed. He was given a spinal anesthetic, a preoperative antibiotic, and TXA. He was then taken back to the operating room and laid on the table in the supine position. He was given basic sedation. The operative leg was secured to a Puristst leg positioner. The hip was then prepped and draped in sterile fashion. A timeout was done and the patient and the operative extremity was pro perly identified. An anterior approach was used. Dissection was taken down through the fascia and the tensor muscle belly was retracted laterally and the rectus was retracted medially. The circumflex vessels were identified and ligated. The capsule was then incised and tagged for later repair. The femoral neck was then cut and the femoral head was removed. The acetabulum was exposed. Time was spent doing a complete circumferential labral release. Sequential reaming of the acetabulum up to a size 51 reamer was done. Final reamings were done under fluoroscopy to ensure appropriate version. A Biomet 52 mm G7 cup was then impacted into place. A single 25 mm screw was placed. The E1 polyethylene liner was then snapped into place. Surrounding soft tissues were then injected with 100 cc of an orthopedic pain control cocktail. The proximal femur was then exposed. Sequential broaching up to a size 5 broach was done. Off that broach a size 36 head with a 0 neck was trialed. The hip was reduced and fluoroscopic images showed anatomic alignment of the implants in acceptable length. The broach was removed. The final size 5 standard offset Avenir Complete stem was then impacted into place. A ceramic 36 mm head with a 0 neck was then impacted onto the stem and the hip was reduced. Final fluoroscopic images showed anatomic alignment of the hip. The capsule was then closed with #1 Vicryl suture. A dilute betadyne lavage was then done for 3 minutes. The joint was then irrigated with normal saline solution. The fascia was closed with #1 PDS suture. Skin was closed with 2-0 Vicryl, cruz, and a Silverlon dressing. He was then transferred to a hospital bed and taken to the post anesthesia care unit in stable condition. He tolerated the procedure well. David Almonte PA-C, was present for the entire procedure. He was critical for patient positioning, prepping, draping, retraction exposure, wound closure and application of sterile dressing. I attest to the content of the Intraoperative Record and any orders documented therein. Any exceptions are noted below.
[2023-12-16] MEDS: TRANEXAMIC ACID 1,000 MG **IV Intra-op IV SCH (08:03)
--- NOTE | 2023-12-16 09:15 | Anesthesiology Progress Note ---
Date of Service December 16, 2023 Anesthesia Post Procedure Vital Signs Vital Signs: Temp Pulse Resp BP Pulse Ox O2 Del Method O2 Flow Rate 12/16/23 09:10 60 20 138/74 95 Room Air 12/16/23 09:00 36.4 C L 58 L 18 137/75 97 Room Air 12/16/23 08:50 62 14 129/58 L 97 Room Air 12/16/23 08:40 60 20 120/67 95 Room Air 12/16/23 08:30 62 18 136/68 98 Oxymask 4 12/16/23 08:22 36.2 C L 65 16 120/61 98 Oxymask 6 12/16/23 05:44 36.7 C 67 20 133/77 99 Room Air Transfer of Care Handoff Completed per policy Notes Mental Status: alert / awake / arousable Patient Amnestic to Procedure: Yes Nausea / Vomiting: adequately controlled Pain: adequately controlled Airway Patency, RR, SpO2: stable & adequate BP & HR: stable & adequate Hydration State: stable & adequate Neuraxial Anesthesia: was administered and sensory block is resolving Anesthetic Complications: no major complications apparent
[2023-12-16] MEDS ORDERED: bisacodyL 10 MG SUPP PR PRN (09:34)
[2023-12-16] MEDS ORDERED: oxyCODONE HCL IR 5 MG TAB (IMMEDIATE RELEASE) PO PRN (09:34)
[2023-12-16] MEDS ORDERED: NITROGLYCERIN SL 0.4 MG/TAB TAB SL PRN (09:34)
[2023-12-16] MEDS ORDERED: METOCLOPRAMIDE HCL INJ 5 MG/ML 2 ML VIAL IV PRN (09:34)
[2023-12-16] MEDS ORDERED: MAGNESIUM HYDROXIDE SUSP 30 ML UDC PO PRN (09:34)
[2023-12-16] MEDS ORDERED: NALOXONE HCL 0.4 MG/1 ML VIAL/CARP IV PRN (09:34)
[2023-12-16] MEDS ORDERED: HYDROmorphone INJ 0.5 MG/0.5 ML SYR IV PRN (09:34)
[2023-12-16] MEDS: SODIUM CHLORIDE 0.9% 1,000 ML IV SCH (10:06)
[2023-12-16] MEDS: LOSARTAN POTASSIUM 25 MG TAB PO SCH (10:31)
[2023-12-16] MEDS: ASPIRIN 81 MG ECTAB PO SCH (10:32)
[2023-12-16] MEDS: DOCUSATE SODIUM 100 MG CAP PO SCH (10:32)
[2023-12-16] MEDS: MULTIVITAMIN TAB PO SCH (10:33)
[2023-12-16] MEDS: ROSUVASTATIN CALCIUM 20 MG TAB PO SCH (10:33)
[2023-12-16] MEDS: FUROSEMIDE 40 MG TAB PO SCH (10:33)
[2023-12-16] MEDS: SPIRONOLACTONE 25 MG TAB PO SCH (10:36)
[2023-12-16] MEDS: METOPROLOL TARTRATE 50 MG TAB PO SCH (10:37)
--- NOTE | 2023-12-16 11:45 | XRay Report ---
XR hip 1V RT w pelvis CLINICAL HISTORY: Postoperative evaluation. COMPARISON: Right hip radiographs November 27, 2023. FINDINGS: Alignment of the total right hip arthroplasty is anatomic. There is no periprosthetic frac ture or unexpected radiopaque foreign body. There is an acetabular screw and skin cruz. IMPRESSION: Expected findings following total right hip arthroplasty. ACT 112: Negative or not required by law. Electronically signed by: Newton Patino M.D. 12/16/2023 11:43 AM
--- NOTE | 2023-12-16 13:47 | Fluoroscopy Report ---
INTRAOPERATIVE RADIOGRAPH CLINICAL HISTORY: Right hip arthroplasty. Fluoro time: 14 seconds Ka,r: 2.05 mGy FINDINGS: A single spot fluoroscopic view of the right hip is presented. A bipolar right hip arthropl asty is in near anatomic alignment. A single cortical lag screw transfixes the acetabular cup. There is no evidence of acute fracture on this fluoroscopic image. IMPRESSION: Intraoperative image from a right hip arthroplasty procedure as above. Electronically signed by: Hipolito Bansal M.D. 12/16/2023 1:45 PM
[2023-12-16] MEDS: SENNA 8.6 MG TAB PO SCH (21:19)
--- NOTE | 2023-12-17 06:43 | Orthopedic Progress Note ---
Date of Service December 17, 2023 Assessment & Plan (1) Status post right hip replacement: Overall he is doing very well. Is not having much pain in the right hip. Will see how he does with physical therapy today with ambulation and range of motion exercises. If his dressing drains again then it can be removed and a compressive dressing with gauze and tape can be placed. He can be discharged home later today. He will follow-up with orthopedics in 2 weeks. He is on aspirin and Plavix for DVT prophylaxis. Lisa Hensley was seen and examined at bedside this morning. Overall he is doing very well. He is not having much pain in the right hip. He has been up and ambulating to the bathroom. He has no complaints.. Review of Systems All systems reviewed & are unremarkable except as noted in HPI & below. Physical Exam On physical examination of the right hip, the dressing has been changed twice. It is now relatively clean and dry. He has some ecchymosis in the area.. Results & Data Results & Data Laboratory Results . Diagnostic Findings X-rays of the right hip show advanced osteoarthritis with joint space narrowing, osteophyte formation, and [id number] articulation. PG Care Time/CCT Total # of Minutes Spent Total Time Spent with Patient: Total time spent is greater than 50% in coordination of care (as documented) at patient's floor/unit and/or counseling patient: Coding Level of Care Code 77535 Post Operative Follow-Up Diagnoses Status post right hip replacement Z96.641
--- NOTE | 2023-12-17 06:44 | Discharge Summary ---
Date of Service December 17, 2023 Principal Diagnosis Same as "Discharge Diagnosis" noted below under Discharge Instructions. Discharge Exam On physical examination of the right hip, the dressing has been changed twice. It is now relatively clean and dry. He has some ecchymosis in the area.. Discharge Data Procedures Performed Operation Date: 12/16/23 07:00 Actual Procedures p Right Anterior Total Hip Arthroplasty, Uncemented(Right) - David Grossman DO Ordered Studies 12/16/23 07:00 FL hip RT 1V Routine Hospital Course (1) Status post right hip replacement: On December 16, 2023 Ayden arrived at [facility] and underwent a right hip replacement without complication. He had a spinal anesthetic. Postoperatively he was started back on aspirin and Plavix for DVT prophylaxis and transferred to the general orthopedic floors. His hospital course was uneventful. On postop day #1, his vital signs were stable and his pain was well-controlled. He was able to participate well with physical therapy doing ambulation and range of motion exercises. He was then discharged home. He will follow-up with orthopedics in 2 weeks. PG Care Time/CCT Total # of Minutes Spent Total Time Spent with Patient: Total time spent is greater than 50% in coordination of care (as documented) at patient's floor/unit and/or counseling patient: Discharge Plan Discharge Items Patient Disposition: Home - Self-Care Reason For Visit: Right Hip Degenerative Joint Disease Discharge Diagnosis: Right hip replacement Activity: Per Instructions section Non-emergency contact: Surgeon Call non-emergency contact if: your wound has increased redness and your wound has increased drainage Follow-up/Referrals: Barbara Rod CRNP [Primary Care Provider] - Diet: Regular Addtl Attending Provider Instructions: Activity and Therapy Recommendations: * If you are using [facility] then therapy will be provided at your home until they feel you have accomplished all of your goals. * If you are using [facility] then Physical Therapy will be provided until they feel you are ready to start Outpatient Physical Therapy. * If you are not using home therapy then Outpatient Physical Therapy should start about 3-5 days from your day of surgery. Therapy will last about 6-10 weeks * You were shown a series of exercises in the hospital. Do these exercises three times each day including the exercises you were shown in physical therapy. * Get up and walk several times each day.~ For the first four weeks, try not to stand or walk for more than one hour at a time. If you do stand or walk for more than one hour, you will not hurt anything, but your leg will likely swell.~~ * As you feel comfortable, you may change from the walker or crutches to a cane and~then to independent walking. Medications: * Narcotic You will likely be sent home from the hospital with a prescription for the narcotic pain medication that worked best throughout your stay. * Cefadroxil -take the antibiotic twice a day for 10 days to help prevent infection. * Aspirin - take aspirin 81 mg twice a day for 6 weeks after surgery. You may continue taking your Plavix as prescribed. * Other medications may be prescribed for specific circumstances. If you have any questions, please call the office at . * Resume previous home medications unless otherwise instructed TEDs/Elastic Stockings: The white elastic stockings help limit swelling and prevent blood clots from forming in your legs. The more you wear them, the more they work. Wear them for six weeks. Dressing Care: Leave the Silverlon dressing in place for 7 days. After 7 days you may remove the dressing. If the incision is not draining then you may leave the cruz open to air. If there is a little bit of drainage or if the cruz are getting stuck on your clothing then cover the incision with a dry dressing. The cruz will be removed at your 2 week follow-up appointment. Showering: You may shower with the Silverlon dressing in place. Do not let the shower spray hit the dressing directly. Pat the Silverlon dressing dry. If the dressing becomes wet underneath, then simply remove the dressing. Keep the incision dry until you are 7 days out from the day of surgery. After 7 days you may remove the Silverlon dressing and shower with the cruz exposed. Let soapy water run over the cruz and pat them dry. Do not scrub or soak the incision. Things To Watch For: * Drainage from the incision site that occurs more than one week after your surgery. * Increased redness at the incision site. * Fever above 102 degrees Fahrenheit. * Unusual chest pain or shortness of breath. * Call [facility] at with any of the above problems Follow-Up Visit: Follow-up with Dr. Grossman's PA (David Almonte) 2-3 weeks after your day of surgery. He will remove your cruz and answer any questions. If you have any additional questions or concerns, Dr Grossman is usually in the office at the same time and will be available An appointment was probably scheduled when you signed-up for surgery in the office. If you have any questions call Office Instructions: More detailed instructions as well as Frequently Asked Questions were provided in a folder by our office when you signed-up for surgery. Please review these instructions when you get home. If you have any further questions or concerns, please feel free to call the office at [phone] Pending Studies at Discharge: No Stand-Alone Forms: [facility], Smoking Cessation Medications and DC Order Prescriptions: New oxycodone 5 mg Tablet 5 mg PO Q4H PRN (Reason: pain) Qty: 30 0RF cefadroxil 500 mg capsule 500 mg PO BID 10 Days Qty: 20 0RF Continued losartan 25 mg tablet 25 mg PO DAILY Qty: 90 3RF Rx Instructions: pt stop lisinopril d/t cough. omeprazole 20 mg capsule,delayed release(DR/EC) 20 mg PO BID Qty: 180 3RF Rx Instructions: pt switch to 20mg twice a day dosing due to sx pharmacy did not receive --verbal given clopidogrel 75 mg tablet 75 mg PO QAM nitroglycerin [Nitrostat] 0.4 mg tablet, sublingual 0.4 mg SL Q5M PRN (Reason: CHEST PAIN ) rosuvastatin [Crestor] 40 mg tablet 40 mg PO DAILY Qty: 30 2RF spironolactone 25 mg tablet 25 mg PO QAM furosemide 40 mg tablet 40 mg PO BID metoprolol tartrate 75 mg tablet 50 mg PO BID cholecalciferol (vitamin D3) [Vitamin D3] 50 mcg (2,000 unit) Tablet 50 mcg PO DAILY Changed aspirin [Adult Low Dose Aspirin] 81 mg tablet,delayed release (DR/EC) 81 mg PO BID 42 Days Qty: 0 0RF Discharge Orders: Discharge Order (Routine); Ordered 12/17/23 Ordered By: David Grossman Admission Data Admit Date/Time: 12/16/23 08:23 Attending Provider: David Grossman Admit Provider: David Grossman Primary Care Provider: Barbara Rod
[2023-12-17] MEDS: CLOPIDOGREL BISULFATE 75 MG TAB PO SCH (08:20)
[2023-12-17] MEDS: dexAMETHasone 4 MG TAB PO SCH (08:20)
--- OUTSIDE RECORDS SUMMARY | 2023-12-17 15:40 | External Medical Summary | Summary of Care ---
Author Name Unknown Organization [facility] Address [address] [place] [address] Phone [phone] Care Team Providers Care Engineer Exhauster Name Role Phone Barbara Rod Primary Care Provide r Reason for Visit * Reason Comments Medication Refill Encounter Details Date Type Department Care Team (Late st Contact Info) Description 12/15/2023 Refill Cardiology, [facility] [address] [place] [id number] Gilbert Morin, PA-C [address] [place] [id number] Dyslipidemia, goal LDL below 70 Allergies Active Allergy Reactions Criticality Noted Date Comments Erythromycin Base 05/23/2023 Other Reaction(s): Rash Morphine And Codeine 06/02/2008 rash Penicillins Hives 06/02/2008 Tetracycline Base Hives 06/02/2008 Tetracycline Hcl 05/31/2010 documented as of this encounter (statuses as of 12/16/2023) Medications Medication Sig Dispensed Refills Start Date End Date Status nitroglycerin (NITROSTAT) 0.4 MG SUBLIndications:Chr onic coronary artery disease,S/P angioplasty with stent 1 Tab Sublingual Every 5 minutes as needed for chest pain 25 Tab 5 09/25/2016 Active Aspirin 81 MG Tablet Take 1 Tablet by mouth in the morning. Active D3 2000 50 MCG (2000 UT) Oral Capsule (Cholecalciferol) Take 1 Capsule by mouth in the morning. Active Clopidogrel Bisulfate 75 MG Oral Tablet (pLAVix)Indications :Chronic coronary artery disease,S/P angioplasty with stent TAKE ONE TABLET BY MOUTH EVERYDAY 90 Tablet 3 02/25/2023 4 Active Spironolactone 25 MG Oral Tablet (Aldactone)Indicati ons:Heart failure, diastolic, with acute decompensation (HCC),Diastolic CHF, acute on chronic (HCC) TAKE ONE TABLET BY MOUTH EVERY DAY 90 Tablet 3 03/21/2023 4 Active Metoprolol Tartrate 50 MG Oral Tablet (Lopressor)Indicati ons:Chronic coronary artery disease TAKE ONE TABLET BY [...] 11/18/2023 Active Furosemide 40 MG Oral Tablet (Lasix)Indications: Heart failure, diastolic, with acute decompensation (HCC) Take 1 Tablet by mouth in the morning and 1 Tablet before bedtime. 11/27/2023 Active Rosuvastatin Calcium 40 MG Oral Tablet (Crestor)Indication s:Dyslipidemia, goal LDL below 70 TAKE ONE TABLET BY MOUTH EVERY DAY 90 Tablet 3 12/16/2023 Active Rosuvastatin Calcium 40 MG Oral Tablet (Crestor)Indication s:Dyslipidemia, goal LDL below 70 TAKE ONE TABLET BY MOUTH EVERY DAY 90 Tablet 3 11/19/2022 4 Discontinu ed(Refill) documented as of this encounter (statuses as of 12/16/2023) Active Problems Problem Noted Date Diagnosed Date S/P CABG x 3 08/26/2023 Penile swelling 08/25/2023 Urinary retention 08/25/2023 Gastroesophageal reflux disease 08/24/2023 Hypertension 08/24/2023 Chronic diastolic (congestive) heart failure 07/2021 S/P AVR (aortic valve replacement) 05/15/2021 Dyslipidemia, goal LDL below 70 05/15/2021 Nonrheumatic aortic valve stenosis 04/23/2016 Atherosclerosis [place] ronary artery of [place] heart without angina pectoris 10/03/2011 S/P PTCA (percutaneous transluminal coronary ang ioplasty) 10/03/2011 Carotid stenosis, non-symptomatic 04/26/2011 S/P angioplasty with stent 06/02/2010 Overview: BLADIMIR to mLAD 06/02/10-Dr. Amos History of prostate cancer 07/29/2008 documented as of this encounter (statuses as of 12/16/2023) Resolved Problems Problem Noted Date Diagnosed Date Resolved Date Atherosclerosis of [place] ronary artery of [place] heart 08/01/2023 11/22/2023 Overview: duplicate Postoperative anemia due to acute blood loss 8 04/16/2023 [employer] Other*[id number] 06/02/2010 06/19/2016 Overview: Study Titile: Gen[employer] Markers for Patients with Cardiovascular Disease Project #[id number] PI: Santa Amos MD Please call [phone] with study related questions Chronic coronary artery disease 06/02/2010 11/22/2023 Overview: duplicate [facility] Clinical Trial [id number] 1 05/20/2013 Overview: Dr Lui Melgar PI, enrolled 06/02/10 [facility] Clinical Trial [id number] 1 04/21/2014 Overview: Renamed per the Centers for Medicare and Medicaid billing requirements to include Clinical Trial.gov number. Dr Lui Melgar PI, enrolled 06/02/10 documented as of this encounter (statuses as of 12/16/2023) Immunizations Name Administration Dates Next Due Season [...] encounter Miscellaneous Notes * Telephone Encounter - Gilbert Morin PA-C - 12/16/2023 4:31 PM EDTSigned Prescriptions: Disp Refills Rosuvastatin Calcium 40 MG Oral Tablet (Cr*90 Tab*3 Sig: TAKE ONE TABLET BY MOUTH EVERY DAY Authorizing Provider: GILBERT MORIN * Telephone Encounter - Kiana Pérez auto painter - 12/16/2023 4:21 PM EDT [facility] order pharmacy calling to check status of refill request Kiana Schultz [employer] [facility] 12/16/2023,4:21 PM * Telephone Encounter - Zulema Nicholas CMA - 12/16/2023 3:54 PM EDTPending Prescriptions: Disp Refills Rosuvastatin Calcium 40 MG Oral Tablet (Cr*90 Tab*3 Sig: TAKE ONE TABLET BY MOUTH EVERY DAY * Telephone Encounter - Zulema Nicholas CMA - 12/16/2023 1:49 PM EDT Did you pend patient's preferred pharmacy and medication before forwarding?yes Pharmacy: [facility] Pending Prescriptions: Disp Refills Rosuvastatin Calcium 40 MG Oral Tablet (C*90 Tab*3 Sig: TAKE ONE TABLET BY MOUTH EVERY DAY Last Visit: 11/25/2023 (in office), Visit date not found (telemedicine) Next Visit: 02/25/2024 If no future appointments scheduled, and last appointment is greater than a year ago, please schedule patient for a follow-up appointment Last date the medication was ordered: 11/19/22 Is this request for a controlled substance?No Urine Drug Screen:No results found for this or any previous visit. Patient Phone Numbers Labs: Lab Results Component Value Date/Time CREAT 0.92 12/10/2023 12:00 AM CREAT 1.1 11/23/2017 04:25 AM POTASSIUM 3.8 12/10/2023 12:00 AM POTASSIUM 4.1 11/23/2017 04:25 AM TSH 1.79 08/01/2023 01:25 PM TSH 2.343 08/01/2022 12:00 AM TSH 1.53 11/01/2017 12:22 PM LDLCALC 67 07/25/2020 08:39 AM LDLCALC 71 09/25/2019 07:50 AM LDLDIRECT 64 11/25/2023 11:00 AM LDLDIRECT 60 10/14/2023 12:00 AM ALT 20 11/25/2023 11:00 AM ALT 16 08/01/2022 12:00 AM ALT 31 11/01/2017 12:22 PM HGBA1C 6.3 (H) 08/01/2023 01:25 PM HGBA1C 6.1 11/01/2017 12:22 PM documented in this encounter Plan of Treatment Upcoming Encounters Date Type Department Care Team (Late st Contact Info) Description 02/25/2024 9:00 AM EDT Office Visit Cardiology, [facility] [address] [address] Gilbert Morin PA-C [address] [place] [address] 04/01/2024 10:30 AM EST Appointment Vascular Lab [address] [place] [address] 04/01/2024 11:15 AM EST Office Visit Vascular Surg [facility] [address] [place] [address] Darrell Lux MD [address] [place] [address] Health Maintenance Due Date Last Done Comments Albumin/Creatinine Ratio 1958 DTaP,Tdap,and Td Vaccines (1 - Tdap) 1959 COVID-19 Vaccine (5 - 2022- season) 2023 02/19/2022, 04/18/2021, 08/30/2020, [...] this encounter Medical Devices Implanted Type Area Chiller Tender Device Identifier Shelf Expiration Date Model / Serial / Lot Patch Vascuguard .8x8 [id number] - [id number] Implanted:Qty: 1 on 04/26/2011 at OR [facility] Tissue - Human Left: Carotid [employer] 12/16/2015 [id number] / / [id number] Description:tt Atriclip 40mm [id number] - [id number] Implanted:Qty: 1 on 11/18/2017 by Mamaduo Villar MD at OR [facility] N/A: Aorta ATRICURE 08/11/2020 [id number] / / [id number] Valve Heart Aortic Epic 23mm - [id number] - [id number] Implanted:Qty: 1 on 11/18/2017 by Mamadou Villar MD at OR [facility] N/A: Heart ST KARYN : CARDIOVASCULAR 08/19/2020 [id number] / [id number] / Lens Li61ao 13.00mm 20.50 - [id number] - [id number] Implanted:Qty: 1 on 10/16/2022 by Jeremias Ho MD at OR [facility] Right: Eye BAUSCH & LOMB 06/12/2027 [id number] / [id number] / [id number] Lens Li61ao 13.00mm 21.00 - [id number] - [id number] Implanted:Qty: 1 on 10/30/2022 by Jeremias Ho MD at OR [facility] Left: Eye BAUSCH & LOMB 06/12/2027 [id number] 00 / [id number] / [id number] Suture Steel 6 B&S19 M654g - [id number] Implanted:Qty: 8 on 08/21/2023 by Christoph Schultz MD at OR [facility] N/A: Sternum JNJ : [employer] 03/12/2028 [id number] / / [id number] Marker Coronary - [id number] Implanted:Qty: 2 on 08/21/2023 by Christoph Schultz MD at OR [facility] N/A: Aorta [employer] 07/10/2026 [id number] / / [id number] documented as of this encounter Visit Diagnoses Diagnosis Dyslipidemia, goal LDL below 70 Other and unspecified hyperlipidemia documented in this encounter Advance Directives * [...] patient have Health Care Power of Attor uadie? No Care Teams Engineer Exhauster Relationship Specialty Start Date End Date Barbara Rod CRNP [address] [place] [id number] PCP - General Nurse Practitioner 12/14/15 documented as of this encounter
== END 2023-12-17 12:03 | disposition home or self-care (01) ==
LOC: ASU 05:07 → 3E 05:07